=== PATIENT | male | born 1980 ===

== ENCOUNTER 2017-09-23 13:08 | Emergency (ER) | payer OTHER ==
[2017-09-23 13:19] VITALS: BP 135/80; PULSE 62; RESP 18; TEMP 98; O2SAT 99
--- NOTE | 2017-09-23 13:56 | ED PDOC ---
History of Present Illness History of Present Illness: Rigoberto Shine is a 37 year old male, with no significant past medical history, who presents to the emergency department complaining of dry cough, tingling in his chest, and scratchy throat onset for x2 days. Patient reports he recently travelled to and from [place]. He was sent here by PMD for flu test and chest X- Ray. Patient took cough drops this morning. He denies any fever, chills or other medical complaints. PMD: Manuel Shine HPI: Influenza Time Seen by Provider: 09/23/17 13:28 Chief Complaint: Cough, Cold, Congestion Chief Complaint (Provider): Cough History Per: Patient Exam Limitations: no limitations Have you had recent travel within the past 21 days to any of: Yes Other Location:: [place] Onset/Duration Of Symptoms: Days (x2) Symptoms include: sore throat (scratchy), cough (dry), other (tingling in chest) Past Medical History Reviewed: Historical Data, Nursing Documentation, Vital Signs Vital Signs: Last Vital Signs Temp 98.0 F 09/23/17 13:17 Pulse 62 09/23/17 13:17 Resp 18 09/23/17 13:17 BP 135/80 09/23/17 13:17 Pulse Ox 99 09/23/17 13:17 - Medical History PMH: No Chronic Diseases - Surgical History Surgical History: No Surg Hx - Family History Family History: States: Unknown Family Hx - Social History Current smoker - smoking cessation education provided: No Alcohol: None Drugs: Denies - Allergies Allergies/Adverse Reactions: Allergies Allergy/AdvReac Type Severity Reaction Status Date / Time Quinolones Allergy URTICARIA Verified 09/23/17 13:17 Review of Systems ROS Statement: Except As Marked, All Systems Reviewed And Found Negative Constitutional: Positive for: Other (tingling in chest.). Negative for: Fever, Chills ENT: Positive for: Throat Pain (scratchy) Respiratory: Positive for: Cough (dry) Physical Exam - Reviewed Nursing Documentation Reviewed: Yes Vital Signs Reviewed: Yes - Physical Exam Appears: Positive for: Well, Non-toxic, No Acute Distress Head Exam: Positive for: ATRAUMATIC, NORMAL INSPECTION, NORMOCEPHALIC Skin: Positive for: Normal Color, Warm, Dry Eye Exam: Positive for: Normal appearance, EOMI, PERRL ENT: Positive for: Normal ENT Inspection Neck: Positive for: Painless ROM Cardiovascular/Chest: Positive for: Regular Rate, Rhythm. Negative for: Murmur Respiratory: Positive for: Normal Breath Sounds. Negative for: Respiratory Distress Gastrointestinal/Abdominal: Positive for: Normal Exam, Soft. Negative for: Tenderness Extremity: Positive for: Normal ROM. Negative for: Tenderness, Deformity, Swelling Neurologic/Psych: Positive for: Alert, Oriented Medical Decision Making Medical Decision Making: Initial Impression: URI Initial Plan: --EKG --Chest two views (PA/LAT) [RAD] --Influenza A B --Reevaluation -Spoke with Dr. Shine who will follow up on the Chest X-Ray ~ Scribe Attestation: Documented by Meliton Juarez, acting as a scribe for Lu Dyer PA-C. Provider Scribe Attestation: All medical record entries made by the Scribe were at my direction and personally dictated by me. I have reviewed the chart and agree that the record accurately reflects my personal performance of the history, physical exam, medical decision making, and the department course for this patient. I have also personally directed, reviewed, and agree with the discharge instructions and disposition. - ECG O2 Sat by Pulse Oximetry: 99 (RA) Pulse Ox Interpretation: Normal Disposition - Clinical Impression Clinical Impression: Respiratory infection - Disposition Referrals: Manuel Shine MD [Primary Care Provider] - Disposition: Routine/Home Disposition Time: 14:14 Condition: GOOD Instructions: Viral Upper Respiratory Infection, Adult (DC) Forms: [employer] (Croatian)
--- NOTE | 2017-09-23 14:12 | RAD ---
HISTORY: pneumonia COMPARISON: No prior. TECHNIQUE: Chest PA and lateral FINDINGS: LUNGS: No active pulmonary disease. PLEURA: No significant pleural effusion identified. No pneumothorax apparent. CARDIOVASCULAR: Normal. OSSEOUS STRUCTURES: No significant abnormalities. VISUALIZED UPPER ABDOMEN: Normal. OTHER FINDINGS: None. IMPRESSION: No active disease.
--- NOTE | 2017-09-24 13:41 | CARD ---
APPROVED REPORT EKG Measurement Heart [id number] <Conclusion> Sinus bradycardia Otherwise normal ECG
== END 2017-09-23 14:15 | disposition home or self-care (01) ==
LOC: H.ER 13:08
DX: J06.9 Acute upper respiratory infection, unspecified (principal)